=== PATIENT | male | born 1955 | race Caucasian/White ===

== ENCOUNTER → 2021-07-06 10:16 | Outpatient (BNVA) | payer MEDICARE, SELFPAY | PROVIDERS: Visit Provider Specialist | DX: N39.0 Urinary tract infection, site not specified (principal); R97.20 Elevated prostate specific antigen [PSA] | CPT/HCPCS: 81000; 87086 ==

== ENCOUNTER 2021-07-09 11:17 | Emergency (ER) | payer MEDICARE, SELFPAY ==
[2021-07-09 11:29] VITALS: BP 116/71; PULSE 63; RESP 14; TEMP 37.3; O2SAT 96; BMI 25.8
[2021-07-09 14:07] LABS: Add Urine Microscopic? NO; Charge for UA Resulting for Rev
--- NOTE | 2021-07-09 14:13 | USR_ITS ---
PROCEDURE INFORMATION: Exam: US Scrotum Exam date and time: 07/09/2021 2:13 PM Age: 65 years old Clinical indication: Scrotum pain; Additional info: Eval for infection, prostatitis TECHNIQUE: Imaging protocol: Real-time ultrasound of the scrotum and contents with color Doppler and image documentation. COMPARISON: No relevant prior studies available. FINDINGS: Right testicle: Midpole cyst with benign morphology (4.8 mm x 6.1 mm x 5.5 mm) Left testicle: Left testicle measures 2.1 cm x 2.9 cm x 4.4 cm Epididymides: Normal. Left 1 cm x 1 cm x 1 cm, right 1.1 cm x 1 cm x 0.8 cm. A small cyst is seen in the right epididymal head 2.3 mm x 2.6 mm x 1.8 mm. Scrotum: Moderate volume hydrocele right side. Other findings: No mass. No torsion. Normal vascular flow. Measure 2.3 cm x 3 cm x 3.9 cm US/US scrotum [id number] IMPRESSION: 1. Benign cyst right testicle. 2. Benign cyst right epididymal head 3. Right side hydrocele 4. Negative left testicle and epididymis Radiation Dose CTDIVOL = (mGy): DLP = (mGy-cm)
[2021-07-09 14:15] LABS: Urine Appearance Clear (CLEAR); Urine Color Straw (Yellow)
[2021-07-09 14:16] LABS: Bilirubin Urine Neg (Negative); Blood Urine Neg (Negative); Glucose Urine UA Norm (Normal); Ketones Urine Negative (Negative); Leukocyte Esterase Urine Negative (Negative); Nitrate Urine Negative (Negative); Protein Urine Neg (Negative); Urobilinogen Urine Norm (Negative); pH Urine 6.5 (5-7)
--- NOTE | 2021-07-09 14:16 | ED_ITS ---
HPI - General Adult General: Chief complaint: Urogenital-Male Stated complaint: GENITAL PAIN: DX PRE-CANCER . Time Seen by Provider: 07/09/21 11:32 History of Present Illness: HPI narrative: Patient is a 65-year-old male with a history of precancerous prostate presenting to the emergency room with symptoms of dysuria darker urine x3 days. Patient denies any flank pain fever/chills, abdominal complaints. Patient is not sexually activeand denies any new penile discharge. Patient denies any trauma to the groin, no complaints of testicular pain or swelling. Onset:3 days ago Duration:3 days Location:home Severity:moderate Review of Systems Narrative: Constitutional: No fever, no chills. HEENT: No vision changes CV: No chest pain, no palpitations PULM: no cough, no dyspnea. GI: No abdominal pain, no N/V/D. : +dysuria, darker urine MSKEL: No muscle pain SKIN: No new rashes, no lesions. NEURO: No headache, no focal weakness. HEME: No visible bruises PSYCH: Normal mood Physical Exam Narrative: EXAM NARRATIVE: Head: Atraumatic Eyes: PERRL, conjunctiva without injection ENT: Mucous membrane moist NECK: Supple, ROM intact LUNGS: LCTAB, no crackles/rhonchi CV: RRR ABDOMEN: Soft, nontender in all quadrants EXTREMITY: Normal ROM SKIN: No rash or erythema NEURO: Awake and alert, no focal motor deficits PSYCH: Normal mood and affect : Normal external genitalia, Testicles non-tender b/l, no erythema. Course Vital Signs: Vital signs: Vital Signs Temperature 99.1 F 07/09/21 11:29 Pulse Rate 63 07/09/21 11:29 Respiratory Rate 14 07/09/21 11:29 Blood Pressure 116/71 07/09/21 11:29 Pulse Oximetry 96 07/09/21 11:29 MDM - General Adult MDM Narrative: Medical decision making narrative: 65-year-old male with a history of precancerous prostate presenting to the emergency room with complaints of dysuria x3 days. On exam, patient is hemodynamically stable without any focal complaints at this time. No significant findings UA showed no signs of infection Ultrasound of the scrotum did not show any signs of acute epididymitis, torsion, or orchitis. I have given patient follow up with our casework supervisor to be seen by our outpatient Urology for further management prostate issues and dysuria. Patient aware of a call from our casework supervisor to schedule for appointment(s) and verbalizes understanding of the importance of following up. Should patient have persistent symptoms, he is instructed follow-up Dr. Omalley for evaluation of prostatitis. Disposition: Discharge. Patient counseled regarding diagnostic impression, treatment plan. Patient given ED strict return precautions to return for continuation, worsening, or development of new symptoms. Instructed to f/u w/ Dr. Omalley from Urology regarding symptoms today. Patient verbalized u nderstanding. Lab Data: Labs: Lab Results 07/09/21 13:45 Urine Color Straw (Yellow) Urine Appearance Clear (CLEAR) Urine pH 6.5 (5-7) Ur Specific Gravit y 1.000 L (1.005-1.030) Urine Protein Neg (Negative) Urine Glucose (UA) Norm (Normal) Urine Ketones Negative (Negative) Urine Blood Neg (Negative) Urine Nitrate Negative (Negative) Urine Bilirubin Neg (Negative) Urine Urobilinogen Norm mg/dL mg/dL (Negative) Ur Leukocyte Jolene ase Negative (Negative) Imaging Data^: Other Imaging: Radiologist's impression: [place] [id number] 75Ultrasound ReportSigned Patient: Corey Rueda #: [id number]: 1955cct#:[id number]/Sex: 65 / MADM Date: 07/09/21Loc: ERRoom/Bed:Attending Dr: Ordering Provider/Ordering MD: Rahul Garcia MD Date of Service: 07/09/21 Procedure(s): US scrotum [id number] Accession Number(s): [id number] Report Number: [id number] PROCEDURE INFORMATION: Exam: US Scrotum Exam date and time: 07/09/2021 2:13 PM Age: 65 years old Clinical indication: Scrotum pain; Additional info: Eval for infection, prostatitis TECHNIQUE: Imaging protocol: Real-time ultrasound of the scrotum and contents with color Doppler and image documentation. COMPARISON: No relevant prior studies available. FINDINGS: Right testicle: Midpole cyst with benign morphology (4.8 mm x 6.1 mm x 5.5 mm) Left testicle: Left testicle measures 2.1 cm x 2.9 cm x 4.4 cm Epididymides: Normal. Left 1 cm x 1 cm x 1 cm, right 1.1 cm x 1 cm x 0.8 cm. A small cyst is seen in the right epididymal head 2.3 mm x 2.6 mm x 1.8 mm. Scrotum: Moderate volume hydrocele right side. Other findings: No mass. No torsion. Normal vascular flow. Measure 2.3 cm x 3 cm x 3.9 cm / scrotum [id number] IMPRESSION: 1. Benign cyst right testicle. 2. Benign cyst right epididymal head 3. Right side hydrocele 4. Negative left testicle and epididymis Radiation Dose CTDIVOL = (mGy): DLP = (mGy-cm) Dictated By:Melania Carpenter By:Melania Carpenter Date/Time:07/09/21 1458DD/ 1413 Discharge Plan Discharge Patient Disposition: Home Clinical Impression: Dysuria Condition: Stable Prescriptions: No Action No Known Home Medications RF: 0 Discharge Orders: Discharge ED (Routine); Ordered 07/09/21 Ordered By: Rahul Garcia Discharge Diet: Advance as tolerated Discharge Activity: Resume usual activity Patient Instructions: Dysuria (ED) Activity Restrictions/Additional Instructions: Come back to the emergency room if your symptoms worsen, if any fever or chills, new drainage, difficulty urinating, blood in the urine, testicular pain, or any new or concerning complaints. Coding Level of Care Code ED Engineering Technician Parking for Brian Burnett
[2021-07-09] MEDS: ketorolac 30 mg/mL INJ IM (15:12)
--- NOTE | 2021-07-11 09:48 | PC.SOCIAL ---
Talked with Sharri at Dr Omalley office and patient has called for appt. Once Dr Garcia has signed off on his notes then Dr Omalley office will get him scheduled and notify pt.
--- NOTE | 2021-07-19 14:49 | DCPLANNER ---
Patient has a follow up appointment scheduled for Saturday, July 26, [address] at 3:[address] Omalley. Clinic will call patient with appointment information.
--- NOTE | 2021-10-08 16:02 | DCPLANNER ---
Patient had a follow up appointment scheduled with Dr. Omalley - patient did attend appointment.
== END 2021-07-09 15:16 | disposition home or self-care (01) ==
PROVIDERS: Emergency Provider Emergency Medicine
DX: N50.89 Other specified disorders of the male genital organs (principal); R30.0 Dysuria
CPT/HCPCS: 76870; 81003; 96372; 99283; J1885

== ENCOUNTER → 2021-07-20 10:28 | Outpatient (BNVA) | payer MEDICARE, SELFPAY | PROVIDERS: Visit Provider Nurse Practitioner Family | DX: I10 Essential (primary) hypertension (principal); M79.89 Other specified soft tissue disorders | CPT/HCPCS: 80053; 83880 ==

== ENCOUNTER → 2021-07-26 15:07 | Outpatient (BNVA) | payer MEDICARE, SELFPAY | PROVIDERS: PCP Nurse Practitioner Family; Visit Provider Urology | DX: R97.20 Elevated prostate specific antigen [PSA] (principal); N41.9 Inflammatory disease of prostate, unspecified; N40.1 Benign prostatic hyperplasia with lower urinary tract symptoms | CPT/HCPCS: 81003; 84153 ==

== ENCOUNTER → 2021-08-16 11:02 | Outpatient (BNVA) | payer MEDICARE, SELFPAY | PROVIDERS: PCP Nurse Practitioner Family; Visit Provider Nurse Practitioner Family | DX: I10 Essential (primary) hypertension (principal); I83.93 Asymptomatic varicose veins of bilateral lower extremities | CPT/HCPCS: 80053 ==

== ENCOUNTER → 2021-09-05 00:01 | Outpatient (BNVA) | payer MEDICARE, SELFPAY | PROVIDERS: PCP Nurse Practitioner Family; Visit Provider Nurse Practitioner Family | DX: R50.9 Fever, unspecified (principal) | CPT/HCPCS: 87635 ==

== ENCOUNTER → 2021-09-07 09:20 | Outpatient (BNVA) | payer MEDICARE, SELFPAY | PROVIDERS: PCP Nurse Practitioner Family; Visit Provider Nurse Practitioner Family | DX: R19.7 Diarrhea, unspecified (principal) | CPT/HCPCS: 87493; 87506 ==

== ENCOUNTER 2021-09-08 15:26 | Emergency (ER) | payer MEDICARE, SELFPAY ==
[2021-09-08 15:38] VITALS: BP 139/81; PULSE 66; RESP 16; TEMP 36.8
--- NOTE | 2021-09-08 15:50 | W.ED.ABDPA2 ---
HPI - Abdominal Pain General: Chief Complaint: Abdominal Pain Stated Complaint: abd pains Time Seen by Provider: 09/08/21 15:49 History of Present Illness: HPI narrative: 58-year-old male presents emergency room complaining of abdominal pain. Has had this for several weeks. He had cultures done yesterday to evaluate for C. difficile. Cultures reviewed are in the chart and all were negative. He denies hematochezia hematemesis coffee-ground emesis melena. He has had problems prostatitis for which she has been on 4 rounds of antibiotics recently. No vomiting. No fever. No shortness of breath or chest pain. MD elicited complaint: abdominal pain Pertinent past history: none Onset (ago): minute(s) Pain Consistency: intermittent Location: Diffuse Severity: mild Quality: cramping Radiation: none Migration to: no migration Exacerbating factors: nothing Relieving factors: nothing Associated Symptoms: Reports bloating, change in stool character, GI cramping and diarrhea; Denies anorexia, belching, change in bowel habits, chills, coffee ground emesis, constipation, dyspepsia, dysuria, excessive flatus, fever(s), heartburn, hematochezia, hematuria, hematemesis, fecal incontinence, loose stools, melena, nausea, poor appetite, syncope and vomiting Review of Systems Const: Denies: fever(s) or chills ENMT: Denies: throat pain, ear or mastoid pain, nasal discharge or nasal congestion Card: Denies: syncope Resp: Denies: dyspnea, productive cough or non-productive cough GI: Reports: diarrhea, bloating, GI cramping and change in stool character; Denies: nausea, vomiting, hematemesis, coffee ground emesis, heartburn, constipation, belching, excessive flatus, fecal incontinence, change in bowel habits, hematochezia or melena : Denies: dysuria or hematuria Skin/Breast: Denies: rash or pruritus PFSH ED PFSH: Medical History BPH loc w urin obs/LUTS Elevated PSA Prostatitis Psychiatric care Schizophrenia Surgical History Hx of prostate biopsy Family History Father CAD (coronary artery disease) Chronic kidney disease (CKD) Mother No problems noted. Social History Alcohol intake: current Alcohol intake frequency: holidays/special occasions only Marital status: Single Current occupational status: retired Physical Exam Const: COMMON NORMALS: no acute distress GENERAL APPEARANCE: cooperative and comfortable ORIENTATION/CONSCIOUSNESS: Yes awake, Yes oriented to person, Yes oriented to place and Yes oriented to time HENMT: COMMON NORMALS: normocephalic, atraumatic and hearing grossly normal bilaterally HEAD & SCALP: normocephalic and atraumatic Neck/C-Spine: COMMON NORMALS: no JVD Resp: COMMON NORMALS: normal respiratory effort, No retractions, No use of accessory muscles and clear to auscultation bilaterally AUSCULTATION: clear to auscultation bilaterally Cardio: COMMON NORMALS: no JVD, regular rate, regular rhythm and No murmurs present (Cardio) RATE: regular rate RHYTHM: regular rhythm GI: COMMON NORMALS: Soft to palpation and No hepatosplenomegaly present AUSCULTATION: Yes normoactive bowel sounds PALPATION: Yes Soft to palpation, No Tenderness to palpation present (GI), No Guarding due to palpation present (GI) and Yes No hepatosplenomegaly present Extremity: COMMON NORMALS: normal to inspection, capillary refill normal, no clubbing, cyanosis or edema, no calf tenderness and no pedal edema Neuro: SENSORIUM/ORIENTATION: Yes oriented to person, Yes oriented to place and Yes oriented to time Skin: COMMON NORMALS: no rashes or lesions noted GENERAL SKIN EXAM: no rashes or lesions noted Course Vital Signs: Vital signs: Vital Signs Temperature 98.2 F 09/08/21 15:38 Pulse Rate 75 09/08/21 17:00 Respiratory Rate 16 09/08/21 17:00 Blood Pressure 150/79 09/08/21 17:00 Pulse Oximetry 96 09/08/21 17:00 MDM - Abdominal Pain MDM Narrative: Medical decision making narrative: Labs and imaging reviewed. Recommend that he stop the antibiotics this plan is probably exacerbating his diarrhea. Previous lab stool studies are negative. Follow-up with urology. If diarrhea persists will need to see his PCP to consider endoscopy. Return if his further problems. Lab Data: Labs: Lab Results 09/08/21 09/08/21 16:09 16:09 WBC 4.3 10^3/uL 10^3/ uL (4.0-10.0) RBC 4.35 10^6/uL 10^6 /uL (4.1-5.3) Hgb 14.3 g/dL g/dL (11.7-16.6) Hct 40.9 % L % (42.0-52.0) MCV 94.0 fl fl (80-94) MCH 32.9 pg pg (28.0-34.0) MCHC 35.0 g/dL g/dL (30.0-36.0) RDW 11.5 % L % (12.1-15.1) Plt Count 230 10^3/cmm 10^3 /cmm (130-400) MPV 9.1 fL fL (7.4-10.4) Neut % (Auto) 58.9 % % Lymph % (Auto) 25.9 % % Mckenzie % (Auto) 12.5 % % Eos % (Auto) 1.8 % % Baso % (Auto) 0.7 % % Neut # (Auto) 2.55 10^3/uL 10^3 /uL (1.8-7.7) Lymph # (Auto) 1.1 10^3/uL 10^3/ uL (0.8-4.8) Mckenzie # (Auto) 0.5 10^3/uL 10^3/ uL (0.2-0.9) Eos # (Auto) 0.1 10^3/uL 10^3/ uL (0.0-0.8) Baso # (Auto) 0.0 10^3/uL 10^3/ uL (0.0-0.1) Nucleated RBC % (a uto) 0 % % Nucleated RBCs # 0.0 /100WBC /100W BC Sodium 133 mmol/L L mmol /L (136-145) Potassium 4.0 mmol/L mmol/L (3.5-5.1) Chloride 97 mmol/L L mmol/ L (98-107) Carbon Dioxide 23 mmol/L mmol/L (22-29) Anion Gap 17.0 (5-19) BUN 10 mg/dL mg/dL (8-23) Creatinine 0.9 mg/dL mg/dL (0.7-1.2) GFR Calculation 83.9 mL/min L mL/ min (90-130) Glucose 94 mg/dL mg/dL (65-115) Calculated Osmolal ity 275 mOsm/kg L mOs m/kg (285-295) Calcium 8.6 mg/dL mg/dL (8.5-10.5) Total Bilirubin 0.7 mg/dL mg/dL (0.15-1.2) AST 27 U/L U/L (0-40) ALT 26 U/L U/L (0-41) Alkaline Phosphata se 56 IU/L IU/L (40-130) Total Protein 7.1 g/dL g/dL (6.6-8.7) Albumin 4.5 g/dL g/dL (3.5-5.2) Globulin 2.6 g/dL g/dL (1.3-4.6) Lipase 38 U/L U/L (13-60) Discharge Plan Discharge Patient Disposition: Home Clinical Impression: Chronic diarrhea Condition: Stable Prescriptions: No Action sulfamethoxazole-trimethoprim 800-160 mg tablet 1 tab PO BID Qty: 60 RF: 2 tamsulosin 0.4 mg capsule 0.4 mg PO .at bedtime Qty: 30 RF: 12 lisinopril 10 mg tablet 10 mg PO DAILY RF: 0 risperidone [Risperdal] 1 mg tablet 1 mg PO DAILY RF: 0 Discharge Orders: Discharge ED (Routine); Ordered 09/08/21 Ordered By: Estrada Smallwood Referrals: Rosemary Lima FNP [Primary Care Provider] - Discharge Diet: Clear Liquid Discharge Activity: Limit activity as instructed Patient Instructions: Opioid Safety Activity Restrictions/Additional Instructions: Follow-up with your doctor within the next week. You may need to have endoscopy done. Coding Level of Care Code ED Ship Self Defense System Mk1 Operator for Chg Fwd Exam Comprehensive
[2021-09-08 16:18] LABS: Basophils % 0.7 %; Eosinophils # 0.1 10^3/uL (0.0-0.8); Eosinophils % 1.8 %; Hematocrit 40.9 % (42.0-52.0); Hemoglobin 14.3 g/dL (11.7-16.6); Lymphocytes # 1.1 10^3/uL (0.8-4.8); Lymphocytes % 25.9 %; Mean Corpuscular Hemoglobin 32.9 pg (28.0-34.0); Mean Platelet Volume 9.1 fL (7.4-10.4); Monocytes # 0.5 10^3/uL (0.2-0.9); Monocytes % 12.5 %; Neutrophils # 2.55 10^3/uL (1.8-7.7); Neutrophils % 58.9 %; Nucleated Red Blood Cells % 0 %; Platelet Count 230 10^3/cmm (130-400); Red Blood Count 4.35 10^6/uL (4.1-5.3); Red Cell Distribution Width 11.5 % (12.1-15.1); White Blood Count 4.3 10^3/uL (4.0-10.0)
[2021-09-08 16:42] LABS: Alanine Aminotransferase 26 U/L (0-41); Albumin Level 4.5 g/dL (3.5-5.2); Alkaline Phosphatase 56 IU/L (40-130); Aspartate Amino Transferase 27 U/L (0-40); Blood Urea Nitrogen 10 mg/dL (8-23); Calcium 8.6 mg/dL (8.5-10.5); Carbon Dioxide 23 mmol/L (22-29); Chloride 97 mmol/L (98-107); Globulin 2.6 g/dL (1.3-4.6); Glomerular Filtration Rate 83.9 mL/min (90-130); Glucose 94 mg/dL (65-115); Lipase 38 U/L (13-60); Osmolality Calculated 275 mOsm/kg (285-295); Sodium 133 mmol/L (136-145); Total Bilirubin 0.7 mg/dL (0.15-1.2); Total Protein 7.1 g/dL (6.6-8.7)
[2021-09-08 17:00] VITALS: BP 150/79; PULSE 75; RESP 16; O2SAT 96
== END 2021-09-08 17:09 | disposition home or self-care (01) ==
PROVIDERS: Emergency Provider Family Medicine; PCP Nurse Practitioner Family
DX: K52.9 Noninfective gastroenteritis and colitis, unspecified (principal)
CPT/HCPCS: 80053; 83690; 85025; 99283

== ENCOUNTER → 2021-09-25 13:16 | Outpatient (BNVA) | payer MEDICARE, SELFPAY | PROVIDERS: PCP Nurse Practitioner Family; Visit Provider Urology | DX: N40.1 Benign prostatic hyperplasia with lower urinary tract symptoms (principal) | CPT/HCPCS: 81003 ==

== ENCOUNTER → 2021-10-02 13:34 | Outpatient (BNVA) | payer MEDICARE, SELFPAY | PROVIDERS: PCP Nurse Practitioner Family; Visit Provider Psychiatry & Neurology Psychiatry | DX: F20.9 Schizophrenia, unspecified (principal) | CPT/HCPCS: 99204 ==

== ENCOUNTER → 2021-11-16 11:50 | Outpatient (BNVA) | payer MEDICARE, SELFPAY | PROVIDERS: PCP Nurse Practitioner Family; Visit Provider Pediatrics Adolescent Medicine | DX: E11.9 Type 2 diabetes mellitus without complications (principal) | CPT/HCPCS: 83036 ==

== ENCOUNTER → 2021-11-30 11:19 | Outpatient (BNVA) | payer MEDICARE, SELFPAY | PROVIDERS: PCP Nurse Practitioner Family; Visit Provider Psychiatry & Neurology Psychiatry | DX: F20.9 Schizophrenia, unspecified (principal) | CPT/HCPCS: 99213 ==

== ENCOUNTER → 2022-04-02 13:56 | Outpatient (BNVA) | payer MEDICARE, SELFPAY | PROVIDERS: PCP Nurse Practitioner Family; Visit Provider Urology | DX: R97.20 Elevated prostate specific antigen [PSA] (principal); N41.9 Inflammatory disease of prostate, unspecified; N40.1 Benign prostatic hyperplasia with lower urinary tract symptoms; N41.1 Chronic prostatitis | CPT/HCPCS: 51741; 51798; 81003; 84153; 99213 ==

== ENCOUNTER → 2022-10-12 11:00 | Outpatient (BNVA) | payer MEDICARE, SELFPAY | PROVIDERS: PCP Nurse Practitioner Family; Visit Provider Podiatrist Foot & Ankle Surgery | DX: M72.2 Plantar fascial fibromatosis (principal); M24.571 Contracture, right ankle; M21.41 Flat foot [pes planus] (acquired), right foot; M19.071 Primary osteoarthritis, right ankle and foot | CPT/HCPCS: 73630; 99204 ==

== ENCOUNTER → 2022-11-08 08:59 | Outpatient (BNVA) | payer BC, SELFPAY | PROVIDERS: PCP Nurse Practitioner Family; Visit Provider Urology | DX: R97.20 Elevated prostate specific antigen [PSA] (principal) | CPT/HCPCS: 84153 ==

== ENCOUNTER → 2022-11-09 07:33 | Outpatient (BNVA) | payer BC, SELFPAY | PROVIDERS: PCP Nurse Practitioner Family; Visit Provider Urology | DX: N40.1 Benign prostatic hyperplasia with lower urinary tract symptoms (principal); R97.20 Elevated prostate specific antigen [PSA]; N41.1 Chronic prostatitis | CPT/HCPCS: 81003 ==

== ENCOUNTER 2025-07-21 10:29 | Outpatient (CLI) | payer MEDICARE, SELFPAY ==
--- NOTE | 2025-07-21 10:37 | USR_ITS ---
PROCEDURE INFORMATION: Exam: US Bilateral Noninvasive Physiologic Study of the Lower Extremity Arteries, Limited Exam date and time: 07/21/2025 11:25 AM Age: 70 years old Clinical indication: Pain; Foot; Bilateral; Additional info: Peripheral polyneuropathy TECHNIQUE: Imaging protocol: Bilateral Limited bilateral noninvasive physiologic studies of lower extremity arteries. Waveforms were obtained and evaluated. Images were documented and archived. Exam is limited. COMPARISON: US scrotum [id number] 07/09/2021 2:30 PM FINDINGS: Right Ankle-Brachial Index: 1.01 (151/150) Left Ankle-Brachial Index: 1.07 (161/146) US/CV ankle brachial index 16942 IMPRESSION: No evidence of stenosis or occlusion in the lower extremity.
== END 2025-07-21 10:30 | disposition home or self-care (01) ==
LOC: RAD 10:32
PROVIDERS: PCP Electrodiagnostic Medicine; Visit Provider Electrodiagnostic Medicine
DX: M25.571 Pain in right ankle and joints of right foot (principal); M25.572 Pain in left ankle and joints of left foot; G62.89 Other specified polyneuropathies
CPT/HCPCS: 93922